=== PATIENT | female | born 1960 | race Caucasian/White ===

== ENCOUNTER 2025-03-02 10:47 | Outpatient (CLI) | payer OTHER, SELFPAY ==
--- OUTSIDE RECORDS SUMMARY | 2010-10-31 03:30 | XMS_ITS | Continuity of Care Document ---
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 Role Phone Unavailable Unavailable Unavailable Allergies, Adverse Reactions, Alerts Substance Reaction Status Criticality latex rash Active No Information NITROFURANTOIN MACROCRYSTALLINE rash Active No Information Medications Medication Instructions Dosage Effective Dates (start - stop) Status Comments tamoxifen 20 mg Tab take 1 tablet (20MG) by oral route every day 20 MG - Active Multiple Vitamin Tab take 1 tablet by ORAL route every day 1.00 tablet - Active MiralaxBisacodylMagCit Colon Prep Use as directed - No Longer Active Procedures Procedure Date Colonoscopy Flex; Dx (sep Pro) 11 Offic Cons New/estab Mod 40 Mi 07 Routine Serum Collection Advance Directives Directive Yes / No Effective Date File Name No Information Encounters Encounter Description Practice Location Reason(s) For Visit Diagnoses Date Provider Providers Copied on Encounter [facility], [address] [address], [place], [place], [id number], [place] tel:[phone] [facility] Colon Cancer Screening 1 No Information [facility], [address] [address], [place], [place], [id number], [place] tel:[phone] [facility] No Information 0 No Information Offic Cons New/estab Mod 40 [facility], [address] [address], [place], [place], [id number], tel:[phone] [facility] Hematochezia /melenaFlatu l/eructat/ga s Pain 200 7 No Information Family History Family Member Type Diagnosis Age At Onset No Information Payers Payer name Insurance type Covered libertarian ID Authoriza tion(s) [employer] [id number] Social History Type Description Quantity Date Captured Comments Sex Female Smoking Status No Information Chief Complaint And Reason For Visit No Information Reason For Referral Reason For Referral No Information History Of Present Illness Encounter Date Complaint History Of Prese nt Illness No Information Functional Status Date Functional Assessmen t No Information Instructions Date Instruction Additional Infor mation No Information Assessments Type Assessment Date No Information Patient Care Teams Name Effective Dates (start - stop) Status Members No Information
[2025-03-02 21:28] LABS: Basophils Percent Auto 0.5 % (0.0-3.0); Eosinophils Percent Auto 2.2 % (0.0-7.0); Hemoglobin* 14.1 gm/dL (12.0-16.0); Immature Granulocytes Pct Auto 0.2 %; Lymphocytes Percent Auto 30.2 % (20-44); Mean Corpuscular HGB Conc 32 gm/dL (32-36); Mean Corpuscular Hemoglobin 30 pg (26-34); Mean Corpuscular Volume 94 fL (80-100); Monocytes Percent Auto 8.5 % (0.0-11.0); Neutrophils Percent Auto 58.4 % (42.0-72.0); Platelet Count* 282 K/uL (140-440); RDW Coefficient of Variation % 13.3 % (11.5-15.5); Red Blood Count 4.66 m/uL (4.00-5.20)
[2025-03-02 21:29] LABS: Slide Review Reflex No
[2025-03-02 21:34] LABS: Albumin* 4.9 g/dL (3.3-5.0); Chloride* 102 mmol/L (96-114); Sodium* 137 mmol/L (135-149)
[2025-03-02 21:35] LABS: Potassium* 4.7 mmol/L (3.6-5.1)
[2025-03-02 21:37] LABS: Alanine Aminotransferase* 47 U/L (4-35); Alkaline Phosphatase* 79 U/L (40-150); Anion Gap 12 mEq/L (7-15); Aspartate Amino Transferase* 49 U/L (12-35); Bilirubin Total* 0.5 mg/dL (0.1-1.5); Blood Urea Nitrogen* 18 mg/dL (7-30); Carbon Dioxide* 23 mmol/L (20-32); Creatinine* 0.7 mg/dL (0.5-1.5); Estimated Glomerular Filt Rate 96 ml/min; Total Protein* 7.5 g/dL (6.0-8.3)
[2025-03-02 21:38] LABS: Calcium* 10.1 mg/dL (8.4-10.6); Glucose* 94 mg/dL (60-115)
[2025-03-02 22:08] LABS: Hepatitis B Surface Antigen* Negative (Negative)
[2025-03-02 23:14] LABS: Hepatitis B Surface Antibody* Negative (Negative)
--- OUTSIDE RECORDS SUMMARY | 2025-03-03 00:46 | XMS_ITS | Clinical Summary ---
Author Organization [facility] Address [address] [place] [address]. 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 Name Role Phone Page, Augie Hernandez MD Unavailable Unavailable Deonte Winn Unavailable [phone] Coming Valentina Sawyer MD Primary Care Provid er Coming Valentina Sawyer MD Unavailable [phone] Kourtney Metz MD Unavailable [phone] Allergies Active Allergy Reactions Criticality Noted Date Comments Latex Rash Low 10/23/2010 Latex Gloves Nitrofurantoin Rash Low 01/05/2000 rash Medications MULTIVITAMINS TABS OR 1 tablet daily 0 0 0 Active triamcinolone (KENALOG) 0.1 % external creamIndications:P soriasis Apply topically 2 times daily 80 g 1 2 Active calcipotriene (DOVONOX) 0.005 % external ointmentIndication s:Psoriasis APPLY TOPICALLY 2 TIMES DAILY NEEDED. 60 g 1 3 Active ketoconazole (NIZORAL) 2 % external shampooIndications :Seborrheic dermatitis APPLY TO THE AFFECTED AREA AND WASH OFF AFTER 5 MINUTES. 120 mL 3 Active clobetasol (TEMOVATE) 0.05 % external solutionIndication s:Psoriasis APPLY TO SCALP TWICE DAILY 50 mL 11 3 Active fluocinonide (LIDEX) 0.05 % external ointment APPLY TO AFFECTED AREAS ON THE EARS TWICE DAILY FOR UP TO TWO WEEKS, THEN TWICE WEEKLY THEREAFTER. 4 Active atorvastatin (LIPITOR) 10 MG tabletIndications: Mixed hyperlipidemia Take 1 tablet (10 mg) by mouth daily. 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 Problem list name updated by automated process. 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 Provider to review Hypoglycemia 07/29/2000 06/01/2019 Overview (06/13/2015): Problem list name updated by automated process. Provider to review Headache 07/29/2000 06/01/2019 Overview (06/13/2015): Problem list name updated by automated process. Provider to review Encounters Date Type Department Care Team Description 02/07/[address] [address] Coming Valentina Sawyer MD Medication Refill from Last 3 Months Immunizations Immunization Administration Dates Next Due COVID-19 MONOVALENT 12+ (Pfizer) 10/01/2020,08/15 HEPA 03/26/2009 Hepatitis A (VAQTA)(ADULT 19+) 11/19/2016,2008 Influenza (High Dose) Trival ent,PF (Fluzone) 06/22/2024 Influenza (IIV3) PF 06/03/2012, 0,06/05/2009,06/25,06/22/2006,07/15/2005,06/17/2004 Influenza Vaccine >6 months,quad, PF 08/2021,06/01/2019,07/06/2017,07/04 Influenza Vaccine Trivalent (FluBlok) 06/24/2018 Influenza,INJ,MDCK,PF,Quad >6mo(Flucelvax) 05/20/2023,05/30/2022,06/14/2020 Mantoux Tuberculin Skin Test 04/22/2009,03/26/20 09,05/25/2005 Pneumococcal 20 valent Conju gate (Prevnar 20) 08/29/2024 RSV Vaccine (Arexvy) 08/19/2023 TD,PF 7+ (Tenivac) 07/29/2000 07/29/2010 TDAP (Adacel,Boostrix) 03/06/2021 TDAP Vaccine (Adacel) 06/27/2010 Zoster recombinant adjuvante d (Shingrix) 09/25/2018,08/17/2018,04/29/2018 Family History Medical History Relation Comments Other Cancer Cousin Melanoma Cerebral palsy Daughter 1 Congenital Anomalies Daughter 1 2002 i n her sleep/ age No Known Problems Daughter 2 Prostate Cancer Maternal Grandfather Diabetes Maternal Grandmother Heart Disease Maternal Grandmother Hyperlipidemia Maternal Grandmother Hypertension Maternal Grandmother Cancer Mother melanoma Depression Mother Diabetes Mother Hyperlipidemia Mother Hypertension Mother Other Cancer Mother Melanoma Cancer Paternal Uncle lymphoma No Known Problems Son Breast Cancer No family hx of Colon Cancer No family hx of Relation Status Comments Cousin Daughter 1 Daughter 2 Alive Maternal Grandfather Maternal Grandmother Mother Paternal Uncle Son Alive Social History Tobacco Use Types Packs/Day Years Used Date Smoking Tobacco: Never Smokeless Tobacco: Never Tobacco Cessation:Counseling Given: Not Answered Comments:never smoked Alcohol Use Standard Drinks/Week Comments Yes 5 (1 standard drink = 0.6 oz pure alcohol) 1 glass of wine 3-4 times per week Social Connection and Isolat ion Panel [NHANES] Answer Date Recorded Frequency of Communication w ith Friends and Family Not on file 08/25/2024 How often do you get togethe r with friends or relatives? More than three times a week 08/25/2024 Attends Hoahaoism Services Not on file 08/25 Active Member of Clubs or Organizations Not on f ile 08/25/2024 Attends Club or Organization Meetings Not on aparna e 08/25/2024 Marital Status Not on file 08/25/2024 AUDIT-C Answer Date Recorded Q1: How often do you have a drink containing alcohol? 4 or more times a week 08/23/2023 Q2: How many drinks containi ng alcohol do you have on a typical day when you are drinking? 1 or 2 Q3: How often do you have si x or more drinks on one occasion? Never 08/23/2023 PHQ-2 Answer Date Recorded PHQ-2 Score 0 08/29/2024 [facility] - Occupational Stress Questionnaire Answer Date Recorded Do you feel stress - tense, restless, nervous, or anxious, or unable to sleep at night because your mind is troubled all the time - these days? Not at all 08/25/2024 Exercise Vital Sign Answer Date Recorde d On average, how many days pe r week do you engage in moderate to strenuous exercise (like a brisk walk)? 7 days 08/25/2024 On average, how many minutes do you engage in exercise at this level? 60 min 08/25/2024 Adolescent Education Answer Date Record ed Getting School Help Needed Not on file 06/12 Food Insecurity Answer Date Recorded Within the past 12 months, d id you worry that your food would run out before you got money to buy more? No 08/25/2024 Within the past 12 months, d id the food you bought just not last and you didn t have money to get more? No 08/25/2024 Housing Stability Answer Date Recorded Do you have housing? (Housin g is defined as stable permanent housing and does not include staying outside in a car, in a tent, in an abandoned building, in an overnight jail, or couch-surfing.) Yes 08/25/2024 Are you worried about losing your housing? No 08/25/2024 Financial Resource Strain Answer Date R ecorded Within the past 12 months, h ave you or your family members you live with been unable to get utilities (heat, electricity) when it was really needed? No 08/25/2024 Transportation Needs Answer Date Record ed Within the past 12 months, h as lack of transportation kept you from medical appointments, getting your medicines, non-medical meetings or appointments, work, or from getting things that you need? No 08/25/2024 Interpersonal Safety Answer Date Record ed Do you feel physically and e motionally safe where you currently live? Yes 08/29/2024 Within the past 12 months, h ave you been hit, slapped, kicked or otherwise physically hurt by someone? No 08/29/2024 Within the past 12 months, h ave you been humiliated or emotionally abused in other ways by your partner or ex-partner? 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 on file Not on file Last Filed Vital Signs Vital Sign Reading Time Taken Comments Blood Pressure 128/77 08/29/2024 9:45 AM NUT FORMER Pulse 66 08/29/2024 9:45 AM NUT FORMER Temperature 36.4 C (97.6 F) 08/29/2024 9:45 AM NUT FORMER Respiratory Rate 12 08/29/2024 9:45 AM NUT FORMER Oxygen Saturation 100% 08/29/2024 9:45 AM NUT FORMER Inhaled Oxygen Concentration - - Weight 52.2 kg (115 lb) 08/29/2024 9:45 AM NUT FORMER Height 161.3 cm (5' 3.5) 08/29/2024 9:45 AM NUT FORMER Body Mass Index 20.05 08/29/2024 9:45 AM NUT FORMER Plan of Treatment Upcoming Encounters Date Type Department Care Team (Late st Contact Info) Description 08/29/2025 9:30 AM NUT FORMER Office Visit [facility] [address] [place] [address] [place] [address] [place] [address] Health Maintenance Due Date Last Done Comments CT COLONOGRAPHY 1960 FLEX SIG 1960 COLONOSCOPY 10/31/2020 10/31/2010 FIT 08/23/2023 08/23/2022 PHQ-2 (once per calendar year) 2024 08/29/2024, 08/26/2023, 07/23/2022, Additional history exists COVID-19 VACCINE ( season) 2024 06/22/2024, 08/19/2023, 05/31/2022, Additional history exists LIPID 06/30/2025 06/30/2024, 07/14, 08/14/2022, Additional history exists ANNUAL REVIEW OF HM ORDERS 08/29/202508/29, 08/26/2023, 07/23/2022 FALL RISK ASSESSMENT 08/29/2025 08/29/2024 MEDICARE ANNUAL WELLNESS VISIT 08/29/2025 08/29/2024, 08/26/2023, 07/23/2022, Additional history exists MAMMO SCREENING 09/04/2025 09/04/2024, 08/14, 09/03/2022, Additional history exists DIABETES SCREENING 06/30/2027 06/30/2024, 1 , 07/31/2023, Additional history exists COLORECTAL CANCER SCREENING 09/10/2027 sDNA (Cologuard) 09/10/2027 09/10/2024, 09/10/2024 ADVANCE CARE PLANNING 08/29/2029 08/29/2024 , 03/06/2021, 05/10/2013, Additional history exists DTAP/TDAP/TD VACCINE (3 - Td or Tdap) 03/06/2031 03/06/2021, 06/27/2010, 07/29/2000 DEXA 11/09/2039 11/09/2024, 04/29/2009 HEPATITIS C SCREENING Completed 11/19/2016 ZOSTER VACCINE Completed 09/25/2018, 01/2018, 04/29/2018 PAP Discontinued 07/23/2022, 05/2017, 05/10/2013, Additional history exists RSV VACCINE Completed 08/19/2023 INFLUENZA VACCINE Completed 06/22/2024, , 05/30/2022, Additional history exists PNEUMOCOCCAL VACCINE 50+ YEARS Completed 08/29/2024 HIV SCREENING Discontinued HPV VACCINE Aged Out No longer eligi ble based on patient's age to complete this topic MENINGITIS VACCINE Aged Out No longer eligible based on patient's age to complete this topic Procedures Procedure Name Priority Date/Time Associated Diagnosis Comments DX AXIAL HIPS/SPINE Routine 11/09/2024 2 :48 PM NUT FORMER Post-menopausal COLOGUARD(TabletKiosk) Routine 09/10/2024 9:06 AM NUT FORMER Screen for colon cancer MA SCREENING BILATERAL W/ ELIU Routine 09/04/2024 8:39 AM NUT FORMER Visit for screening mammogram Personal history of breast cancer HEMOGLOBIN A1C Routine 06/30/2024 10:51 AM CDT Prediabetes LIPID REFLEX TO DIRECT LDL PANEL Routine 06/30/2024 10:51 AM CDT Mixed hyperlipidemia FECAL COLORECTAL CANCER SCREEN (FIT) (EXTERNAL RESULT) Routine 08/23/2022 10:00 AM NUT FORMER GYNECOLOGIC CYTOLOGY Routine 07/23/2022 5:26 PM NUT FORMER Cervical cancer screening HEPATITIS C ANTIBODY Routine 11/19/2016 12:03 PM NUT FORMER Hx gestational diabetes Screening for diabetes mellitus Abnormal gynecological examination Screening cholesterol level Encounter for administrative examinations, unspecified Screening for tuberculosis Family history of gout Personal history of malignant neoplasm of breast ZZHC COLONOSCOPY W BIOPSY Routine 10/31/2010 SCANNING RESULTS from Last 3 Months or Most Recently Relevant to Health Maintenance Results * DX AXIAL HIPS/SPINE (11/09/2024 2:48 PM NUT FORMER) Anatomical Region Laterality Modality Dexa Bone Mineral Den sity 11/09/2024 2:48 PM NUT FORMER Impressions 11/10/2024 10:45 AM NUT FORMER IMPRESSION: Low bone density (OSTEOPENIA). T score meets the WHO criteria for low bone density (osteopenia) at one or more measured sites. The risk of osteoporotic fracture increases approximately two-fold for each standard deviation decrease in T-score. Narrative 11/10/2024 10:45 AM NUT FORMER EXAM: DX AXIAL HIPS/SPINE LOCATION: [facility] DATE: 11/09/2024 INDICATION: Baseline BMD screening. DEMOGRAPHICS: Age- 64 years. Gender- Female. Menopausal status- Postmenopausal. COMPARISON: No prior studies available on the current scanner. TECHNIQUE: Dual-energy x-ray absorptiometry (DXA) performed with routine technique. FINDINGS: DXA RESULTS -Lumbar Spine: L1-L4: BMD: 0.989 g/cm2. T-score: -1.7. Z-score: -0.1. -RIGHT Hip Total: BMD: 0.822 g/cm2. T-score: -1.5. Z-score: -0.3. -RIGHT Hip Femoral neck: BMD: 0.789 g/cm2. T-score: -1.8. Z-score: -0.3. -LEFT Hip Total: BMD: 0.859 g/cm2. T-score: -1.2. Z-score: 0.0. -LEFT Hip Femoral neck: BMD: 0.821 g/cm2. T-score: -1.6. Z-score: -0.1. WHO T-SCORE CRITERIA -Normal: T score at or above -1 SD -Osteopenia: T score between -1 and -2.5 SD -Osteoporosis: T score at or below -2.5 SD The World Health Organization (WHO) criteria is applicable to perimenopausal females, postmenopausal females, and men aged 50 years or older. FRACTURE RISK -FRAX Results: The 10 year probability of major osteoporotic fracture is 8.8%, and of hip fracture is 1.3%, based on right femoral neck BMD. RECOMMENDATIONS The current National Osteoporosis Foundation Guide recommends that FDA-approved medical therapies be considered if the 10 year probability of major osteoporotic fracture risk is greater than or equal to 20%, or if the hip fracture risk is greater than or equal to 3%. Please note all treatment decisions require clinical judgement and consideration of individual patient factors, including patient preferences, comorbidities, previous drug use, risk factors not captured in the FRAX model (e.g. frailty, falls, vitamin D deficiency, increased bone turnover, interval significant decline in bone density) and possible under or over-estimation of fracture risk by FRAX. Procedure Note Megan Damico PA-C - 11/10/2024 EXAM: DX AXIAL HIPS/SPINE LOCATION: [facility] DATE: 11/09/2024 INDICATION: Baseline BMD screening. DEMOGRAPHICS: Age- 64 years. Gender- Female. Menopausal status-Postmenopausal. COMPARISON: No prior studies available on the current scanner. TECHNIQUE: Dual-energy x-ray absorptiometry (DXA) performed with routinetechnique. FINDINGS: DXA RESULTS -Lumbar Spine: L1-L4: BMD: 0.989 g/cm2. T-score: -1.7. Z-score: -0.1. -RIGHT Hip Total: BMD: 0.822 g/cm2. T-score: -1.5. Z-score: -0.3. -RIGHT Hip Femoral neck: BMD: 0.789 g/cm2. T-score: -1.8. Z-score: -0.3. -LEFT Hip Total: BMD: 0.859 g/cm2. T-score: -1.2. Z-score: 0.0. -LEFT Hip Femoral neck: BMD: 0.821 g/cm2. T-score: -1.6. Z-score: -0.1. WHO T-SCORE CRITERIA -Normal: T score at or above -1 SD -Osteopenia: T score between -1 and -2.5 SD -Osteoporosis: T score at or below -2.5 SD The World Health Organization (WHO) criteria is applicable toperimenopausal females, postmenopausal females, and men aged 50 years orolder. FRACTURE RISK -FRAX Results: The 10 year probability of major osteoporotic fracture is8.8%, and of hip fracture is 1.3%, based on right femoral neck BMD. RECOMMENDATIONS The current National Osteoporosis Foundation Guide recommends thatFDA-approved medical therapies be considered if the 10 year probability ofmajor osteoporotic fracture risk is greater than or equal to 20%, or ifthe hip fracture risk is greater than or equal to 3%. Please note all treatment decisions require clinicaljudgement and consideration of individual patient factors, includingpatient preferences, comorbidities, previous drug use, risk factors notcaptured in the FRAX model (e.g. frailty, falls, vitamin D deficiency, increased bone turnover, interval significantdecline in bone density) and possible under or over-estimation of fracturerisk by FRAX. IMPRESSION: Low bone density (OSTEOPENIA). T score meets the WHO criteriafor low bone density (osteopenia) at one or more measured sites. The riskof osteoporotic fracture increases approximately two-fold for eachstandard deviation decrease in T-score. December Shelly Sawyer MD IMG DEXA ORDERABLES Final Result * COLOGUARD(TabletKiosk) (09/10/2024 9:06 AM NUT FORMER) [facility] COLOGUARD-ABSTRACT Negative Negative 2024 4:10 PM NUT FORMER [facility] (CLIA #:[id number]) Comment: NEGATIVE TEST RESULT. A negative Cologuard result indicates a low likelihood that a colorectal cancer (CRC) or advanced adenoma (adenomatous polyps with more advanced pre-malignant features) is present. The chance that a person with a negative Cologuard test has a colorectal cancer is less than 1 in 1500 (negative predictive value >99.9%) or has an advanced adenoma is less than 5.3% (negative predictive value 94.7%). These data are based on a prospective cross-sectional study of 10,000 individuals at average risk for colorectal cancer who were screened with both Cologuard and colonoscopy. (Heladio Downey et al, N Engl J Med 2014;370(14):8949-2298) The normal value (reference range) for this assay is negative. COLOGUARD RE-SCREENING RECOMMENDATION: Periodic colorectal cancer screening is an important part of preventive healthcare for asymptomatic individuals at average risk for colorectal cancer. Following a negative Cologuard result, the [place] [employer] and U.S. Multi-Society Task Force screening guidelines recommend a Cologuard re-screening interval of 3 years. References: [place] [employer] Guideline for Colorectal Cancer Screening: https://www.cancer.org/cancer/jqvte-nztqgb-mwmgta/irynlkvhq-qdktggnja-dbsvwum/ac s-rec ommendations.html.; Hugo DK, Andrea MICHAEL, Erna MCMAHON, Colorectal Cancer Screening: Recommendations for Physicians and Patients from the U.S. Multi-Society Task Force on Colorectal Cancer Screening , Am J Gastroenterology 2017; 112:3659-2915. TEST DESCRIPTION: Composite algorithmic analysis of stool DNA-biomarkers with hemoglobin immunoassay. Quantitative values of individual biomarkers are not reportable and are not associated with individual biomarker result reference ranges. Cologuard is intended for colorectal cancer screening of adults of either sex, 45 years or older, who are at average-risk for colorectal cancer (CRC). Cologuard has been approved for use by the U.S. FDA. The performance of Cologuard was established in a cross sectional study of average-risk adults aged 50-84. Cologuard performance in patients ages 45 to 49 years was estimated by sub-group analysis of near-age groups. Colonoscopies performed for a positive result may find as the most clinically significant lesion: colorectal cancer [4.0%], advanced adenoma (including sessile serrated polyps greater than or equal to 1cm diameter) [20%] or non- advanced adenoma [31%]; or no colorectal neoplasia [45%]. These estimates are derived from a prospective cross-sectional screening study of 10,000 individuals at average risk for colorectal cancer who were screened with both Cologuard and colonoscopy. (Heladio Dominguez al, N Engl J Med 2014;370(14):8098-0310.) Cologuard may produce a false negative or false positive result (no colorectal cancer or precancerous polyp present at colonoscopy follow up). A negative Cologuard test result does not guarantee the absence of CRC or advanced adenoma (pre-cancer). The current Cologuard screening interval is every 3 years. ([place] [employer] and U.S. Multi-Society Task Force). Cologuard performance data in a 10,000 patient pivotal study using colonoscopy as the reference method can be accessed at the following location: www.Skillset/results. Additional description of the Cologuard test process, warnings and precautions can be found at www.cologuard.com. Stool specimen (specimen) 09/10/2024 9:06 AM NUT FORMER 09/12/2024 12:18 PM NUT FORMER us December Shelly Sawyer MD LABORATORY [place] l Result [facility] [address] [place] [address], [facility] [phone] [facility] (CLIA #:[id number]) [address] [place] [address] * MA Screen Bilateral w/Eliu (09/04/2024 8:39 AM NUT FORMER) Anatomical Region Laterality Modality Breast Bilateral Mammography Impressions 09/07/2024 12:26 PM NUT FORMER IMPRESSION: ACR BI-RADS Category 2: Benign BREAST CANCER SCREENING RECOMMENDATION: Routine yearly mammography beginning at age 40 or as discussed with your provider. The results and recommendations of this examination will be communicated to the patient. Anny Aguirre MD Narrative 09/07/2024 12:26 PM NUT FORMER BILATERAL FULL FIELD DIGITAL SCREENING MAMMOGRAM WITH TOMOSYNTHESIS Performed on: 09/04/24 Compared to: 09/03/2023, 08/28/2022, and 08/15/2021 Technique: This study was evaluated with the assistance of Computer-Aided Detection. Breast Tomosynthesis was used in interpretation. Findings: There are scattered areas of fibroglandular density. There are breast conservation changes in the left breast. There is no radiographic evidence of malignancy. us December Shelly Sawyer MD IMG MAMMOGRAPHY ORDE RABLES Final Result * Lipid panel reflex to direct LDL Fasting (06/30/2024 10:51 AM CDT) Cholesterol 198 <200 mg/dL 06/30/2024 11:21 AM CDT [facility] Triglycerides 102 <150 mg/dL 06/30/2024 11:21 AM CDT [facility] Direct Measure HDL 117 >=50 mg/dL 2023 11:21 AM CDT [facility] LDL Cholesterol Calculated 61 <100 mg/dL 06/30/2024 11:21 AM CDT [facility] Non HDL Cholesterol 81 <130 mg/dL 06/30/2024 11:21 AM CDT [facility] Patient Fasting > 8hrs? Yes 06/30/2024 11:21 AM CDT [facility] Blood STRUCTURE OF RIGHT UPPER LIMB / Unknown Venipuncture / Unknown 06/30/2024 10:51 AM CDT 06/30/2024 10:51 AM CDT Narrative [facility] - 06/30/2024 11:21 AM CDT Cholesterol Desirable: < 200 mg/dL Borderline High: 200 - 239 mg/dL High: >= 240 mg/dL Triglycerides Normal: < 150 mg/dL Borderline High: 150 - 199 mg/dL High: 200-499 mg/dL Very High: >= 500 mg/dL Direct Measure HDL Female: >= 50 mg/dL Male: >= 40 mg/dL LDL Cholesterol Desirable: < 100 mg/dL Above Desirable: 100 - 129 mg/dL Borderline High: 130 - 159 mg/dL High: 160 - 189 mg/dL Very High: >= 190 mg/dL Non HDL Cholesterol Desirable: < 130 mg/dL Above Desirable: 130 - 159 mg/dL Borderline High: 160 - 189 mg/dL High: 190 - 219 mg/dL Very High: >= 220 mg/dL December Shelly Sawyer MD LAB - BLOOD ORDERABL ES Final Result [facility] [place] [address] [facility] 1st [place] [address] * (ABNORMAL) Hemoglobin A1c (06/30/2024 10:51 AM CDT) Estimated Average Glucose 120(H) <117 mg/dL 06/30/2024 1:12 PM CDT [facility] Hemoglobin A1C 5.8(H) <5.7 % 06/30/2024 1:12 PM CDT [facility] Comment: Normal <5.7% Prediabetes 5.7-6.4% Diabetes 6.5% or higher Note: Adopted from ADA consensus guidelines. Blood STRUCTURE OF RIGHT UPPER LIMB / Unknown Venipuncture / Unknown 06/30/2024 10:51 AM CDT 06/30/2024 11:54 AM CDT December Shelly Sawyer MD LAB - BLOOD ORDERABL ES Final Result [facility] [place] [facility] [address] [facility] [place] [address] * Fecal Colorectal Cancer Screen (FIT) (External Result) (08/23/2022 10:00 AM NUT FORMER) Occult Blood Scn FIT Negative Negative [facility] Stool 08/23/2022 10:0 0 AM NUT FORMER Narrative [facility] - 08/23/2022 10:00 AM NUT FORMER FIT TEST [facility] Lab Result us Provider Outside LAB - HIM EXTERNAL RESULT Final Result [facility] [address] [place] [address] * Pap Screen with HPV - recommended age 30 - 65 years (07/23/2022 5:26 PM NUT FORMER) Interpretation Negative for Intraepithelial Lesion or Malignancy (NILM) 07/28/2022 10:49 AM NUT FORMER [facility] at 1049 NUT FORMER Comment Papanicolaou Test Limitations: Cervical cytology is a screening test with limited sensitivity, and regular screening is critical for cancer prevention. Pap tests are primarily effective for the diagnosis/prevent ion of squamous cell carcinoma, not adenocarcinoma or other cancers. 07/28/2022 10:49 AM [facility] Specimen Adequacy Satisfactory for evaluation, endocerv/transfor mation zone component absent, atrophy 07/28/2022 10:49 AM [facility] Clinical Information none 07/28/2022 10:49 AM [facility] Reflex Testing Yes regardless of result 07/28/2022 10:49 AM [facility] Previous Abnormal? No 07/28/2022 10:49 AM [facility] Performing Labs The technical component of this testing was completed at [facility] 07/28/2022 10:49 AM [facility] Brushing CERVIX UTERI STRUCTURE / Unknown Non-blood Collection / Unknown 07/23/2022 5:26 PM N[facility] 07/23/2022 5:47 PM N[facility] FORMER December Shelly Sawyer MD LAB - BEAKER AP Yanique rosario Result [facility] [address] [facility], [address] [address], [facility] [phone] * Hepatitis C antibody (11/19/2016 12:03 PM N[facility] FOR[facility]) Hepatitis C Antibody Nonreactive Assay performance characteristics have not been established for newborns, infants, and children NR [facility] Blood specimen (specimen) 11/19/2016 12:03 PM N[facility] 11/19/2016 12:18 PM N[facility] FORMER us Darling Sneed MD LAB - BLOOD ORDERABLES Final R esult Performing Organization Address City/[facility]/ZIP Co de Phone Number [facility] [address] [place] [address] * COLONOSCOPY W BIOPSY (10/31/2010) us Provider Abstract PROCEDURES Final Result from Last 3 Months or Most Recently Relevant to Health Maintenance Insurance [facility] [address] [id number] [place] [id number] [facility] none (Work) [address] [place] [id number] [place] [id number] [facility] Care Teams Industrial Maintenance Repairer Helper Relationship Specialty Start [place] [address] [place] [address] PCP - General Family Medicine 07/24/22 Augie Schultz MD MD Ophthalmology 08/13/17 Deonte Winn [facility] [address] [place] [address] Referring Physician Optometry 08/13/17 [place] [address] [place] [address] Assigned PCP 08/08/22 Kourtney Metz MD [address] [place] [address] Dermatology 08/16/23
--- OUTSIDE RECORDS SUMMARY | 2025-03-03 00:46 | XMS_ITS | Encounter Summary ---
Author Organization [facility] Address [address] [place] [address]. [place] [address] Care Team Providers Care Fine Arts Instructor Name Role Phone Darling Sneed MD Primary Care Provider Augie Schultz MD Unavailable Unavailable Deonte Winn Unavailable [phone] Darling Sneed MD Unavailable [phone] Clinic - [facility] Primary Care Provider Coming Valentina Sawyer MD Primary Care Provid er Coming Valentina Sawyer MD Unavailable [phone] Kourtney Metz MD Unavailable Encounter Details Date Type Department Care Team (Late st Contact Info) Description 04/21/2017 MyC Medical Advice [facility] [address] [place] [address] Efrain Crowell MD [address] [place] [address] [place] [address] Social History Tobacco Use Types Packs/Day Years Used Date Smoking Tobacco: Never Smokeless Tobacco: Never Alcohol Use Standard Drinks/Week Comments Yes 5 (1 standard drink = 0.6 oz pur e alcohol) 4/week Comments No Sex and Gender Information Value Date Recorded Sex Assigned at Female 07/05/2020 8:19 PM CDT Legal Sex Female 2:59 AM DRAGSAW OPERATOR Gender Identity Female 07/05/2020 8:19 PM CDT Sexual Orientation Straight 07/05/2020 8: 19 PM CDT 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 on file Not on file documented as of this encounter Plan of Treatment Upcoming Encounters Date Type Department Care Team (Late st Contact Info) Description 08/29/2025 9:30 AM DRAGSAW OPERATOR Office Visit [facility] [id number] [place] [phone] [place] [address] [place] [address] documented as of this encounter Visit Diagnoses Not on filedocumented in this encounter Care Teams Fine Arts Instructor Relationship Specialty Start Date End Date Darling Sneed MD [address], [address] [id number] PCP - General 12/02/10 01/10/22 [facility] [id number] [place] [address] PCP - General 07/23/22 07/23/22 Valentina Chen [place] [id number] [place] [address] PCP - General Family Medicine 07/24/22 Augie Schultz MD [address], [address] [address] Ophthalmology 08/13/17 Deonte Winn [facility] [address] [place] [address] Referring Physician Optometry 08/13/17 Darling Sneed MD [address], [address] [address] Assigned PCP 11/29/16 08/07/22 [place] [address] [place], [place] [id number] Assigned PCP 08/08/22 Kourtney Metz MD [address] [place], [place] [address] Dermatology 08/16/23 documented as of this encounter
--- OUTSIDE RECORDS SUMMARY | 2025-03-03 00:46 | XMS_ITS | Encounter Summary ---
Author Organization [facility] Address [address] [place] [address]. [place] [address] Care Team Providers Care Automatic Splicing Machine Operator Name Role Phone Page, Augie Hernandez MD Unavailable Unavailable Deonte Winn Unavailable [phone] Coming Valentina Sawyer MD Primary Care Provid er Coming Valentina Sawyer MD Unavailable [phone] Kourtney Metz MD Unavailable [phone] Reason for Visit * Reason Comments Medication Refill Encounter Details Date Type Department Care Team (Late st Contact Info) Description 02/07/[address] [phone] [place] [id number] [place] [address] [phone] Medication Refill Social History Tobacco Use Types Packs/Day Years Used Date Smoking Tobacco: Never Smokeless Tobacco: Never Comments:never smoked Alcohol Use Standard Drinks/Week Comments [...] than three times a week 08/25/2024 Attends [employer] Services Not on file 08/25 Active Member [...] Answer Date Recorded PHQ-2 Score 0 08/29/2024 [facility] Occupat [facility] - Occupational Stress [...] in an abandoned building, in an overnight assisted, or couch-surfing.) Yes 08/25/2024 Are you worried [...] PM CDT Legal Sex Female 2:59 AM ELECTRICAL INTEGRATOR Gender Identity Female 07/05/2020 8:19 PM CDT Sexual Orientation Straight 07/05/2020 8: 19 PM CDT 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 on file Not on file documented as of this encounter Plan of Treatment Upcoming Encounters Date Type Department Care Team (Late st Contact Info) Description 08/29/2025 9:30 AM ELECTRICAL INTEGRATOR Office Visit [facility] [id number] [place] [phone] Coming Valentina Sawyer [place] [id number] [place] [phone] documented as of this encounter Visit Diagnoses Diagnosis Psoriasis Other psoriasis documented in this encounter Additional Health Concerns Assessment Noted Time PHQ-9 Depression Total Score: 3 06/01/20 19 10:59 AM CDT documented as of this encounter Care Teams Automatic Splicing Machine Operator Relationship Specialty Start Date End Date Coming Valentina Sawyer [place] [id number] [place] [address] [phone] PCP - General Family Medicine 07/24/22 Augie Schultz MD Ophthalmology 08/13/17 Deonte Winn [facility] [address] Referring Physician Optometry 08/13/17 [place] [address] [place] [address] Assigned PCP 08/08/22 Kourtney Mezt MD [address] [place], [place] [address] Dermatology 08/16/23 documented as of this encounter
--- OUTSIDE RECORDS SUMMARY | 2025-03-03 00:46 | XMS_ITS | Encounter Summary ---
Author Organization [facility] Address [address] [place] [address]. [place] [address] Care Team Providers Care Nuclear Design Engineer Name Role Phone Darling Sneed MD Primary Care Provider Augie Schultz MD Unavailable Unavailable Deonte Winn Unavailable [phone] Darling Sneed MD Unavailable [phone] Clinic - [facility] Primary Care Provider Coming Valentina Sawyer MD Primary Care Provid er Coming Valentina Sawyer MD Unavailable [phone]- [phone] Kourtney Metz MD Unavailable Encounter Details Date Type Department Care Team (Late st Contact Info) Description 03/20/2017 MyC Medical Advice [facility] [address] [place] [address] Efrain Crowell MD [address] [place] [address] [place] [address] Social History Tobacco Use Types Packs/Day Years Used Date Smoking Tobacco: Never Smokeless Tobacco: Never Alcohol Use Standard Drinks/Week Comments Yes 5 (1 standard drink = 0.6 oz pur e alcohol) 4/week Comments No Sex and Gender Information Value Date Recorded Sex Assigned at Female 07/05/2020 8:19 PM CDT Legal Sex Female 2:59 AM CRYSTAL CUTTER Gender Identity Female 07/05/2020 8:19 PM CDT Sexual Orientation Straight 07/05/2020 8: 19 PM CDT 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 on file Not on file documented as of this encounter Plan of Treatment Upcoming Encounters Date Type Department Care Team (Late st Contact Info) Description 08/29/2025 9:30 AM CRYSTAL CUTTER Office Visit [facility] [phone] [place] [phone] [place] [address] [place] [address] documented as of this encounter Visit Diagnoses Not on filedocumented in this encounter Care Teams Nuclear Design Engineer Relationship Specialty Start Date End Date Darling Sneed MD [address], [address] [address] PCP - General 12/02/10 01/10/22 [facility] [id number] [place] [address] PCP - General 07/23/22 07/23/22 Valentina Chen MD [id number] [place] [address] PCP - General Family Medicine 07/24/22 Augie Schultz MD [address], [address] [address] Ophthalmology 08/13/17 Deonte Winn [facility] [address] [place] [address] Referring Physician Optometry 08/13/17 Darling Sneed MD [address], [address] [address] Assigned PCP 11/29/16 08/07/22 [place] [address] [place], [place] [phone] Assigned PCP 08/08/22 Kourtney Metz MD [address] [place], [place] [address] Dermatology 08/16/23 documented as of this encounter
--- OUTSIDE RECORDS SUMMARY | 2025-03-03 00:46 | XMS_ITS | Encounter Summary ---
Author Organization [facility] Address [address] [place] [address]. [place] [address] Care Team Providers Care Wheat Combine Driver Name Role Phone Page, Augie Hernandez MD Unavailable Unavailable Deonte Winn Unavailable [phone] Coming Valentina Sawyer MD Primary Care Provid er Coming Valentina Sawyer MD Unavailable [phone] Kourtney Metz MD Unavailable [phone] Encounter Details Date Type Department Care Team (Late st Contact Info) Description 06/29/2023 [facility] Medical Advice [address] [address] Valentina Chen MD [address] [place] [address] Social History Tobacco Use Types Packs/Day Years Used Date Smoking Tobacco: Never Smokeless Tobacco: Never Comments:never smoked Alcohol Use Standard Drinks/Week Comments Yes 5 (1 standard drink = 0.6 oz pure alcohol) 1 glass of wine 3-4 times per week Social Connection and Isolat ion Panel [NHANES] Answer Date Recorded In a typical week, how many times do you talk on the phone with family, friends, or neighbors? More than three times a week 07/22/2022 How often do you get togethe r with friends or relatives? More than three times a week 07/22/2022 How often do you attend [facility] or evangelical services? 1 to 4 times per year 07/22/2022 Do you belong to any clubs o r organizations such as caodaism groups, unions, fraternal or athletic groups, or school groups? Yes 07/22/2022 Attends Club or Organization Meetings Not on aparna e 07/22/2022 Are you , , di vorced, , never , or living with a partner? 07/22/2022 AUDIT-C Answer Date Recorded Q1: How often do you have a drink containing alcohol? 4 or more times a week 07/22/2022 Q2: How many drinks containi ng alcohol do you have on a typical day when you are drinking? 1 or 2 Q3: How often do you have si x or more drinks on one occasion? Never 07/22/2022 Overall Financial Resource Strain (CARDIA) Answe r Date Recorded How hard is it for you to pa y for the very basics like food, housing, medical care, and heating? Not hard at all 07/22/2022 PHQ-2 Answer Date Recorded PHQ-2 Score 0 07/23/2022 [facility] Occupat ional [facility] - Occupational Stress Questionnaire Answer Date Recorded Do you feel stress - tense, restless, nervous, or anxious, or unable to sleep at night because your mind is troubled all the time - these days? Not at all 07/22/2022 Exercise Vital Sign Answer Date Recorde d On average, how many days pe r week do you engage in moderate to strenuous exercise (like a brisk walk)? 7 days 07/22/2022 On average, how many minutes do you engage in exercise at this level? 50 min 07/22/2022 Hunger Vital Sign Answer Date Recorded Within the past 12 months, y ou worried that your food would run out before you got the money to buy more. Never true 07/22/20 22 Within the past 12 months, t he food you bought just didn't last and you didn't have money to get more. Never true 07/22/2022 PRAPARE - Transportation Answer Date Re corded In the past 12 months, has l ack of transportation kept you from medical appointments or from getting medications? No 05/2022 In the past 12 months, has l ack of transportation kept you from meetings, work, or from getting things needed for daily living? No 07/22/2022 Housing Stability Vital Sign Answer Felix e Recorded In the last 12 months, was t here a time when you were not able to pay the mortgage or rent on time? No 07/22/2022 In the last 12 months, how many places have you lived? 1 07/22/2022 In the last 12 months, was t here a time when you did not have a steady place to sleep or slept in a custodial (including now)? 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 Yes 06/17/2023 8:57 AM CDT documented as of this encounter Plan of Treatment Upcoming Encounters Date Type Department Care Team (Late st Contact Info) Description 08/29/2025 9:30 AM INFORMATICS MANAGER Office Visit [address] [address] Coming Valentina Sawyer [place] [id number] [place] [address] documented as of this encounter Visit Diagnoses Not on filedocumented in this encounter Additional Health Concerns Assessment Noted Time PHQ-9 Depression Total Score: 3 06/01/20 19 10:59 AM CDT documented as of this encounter Care Teams Wheat Combine Driver Relationship Specialty Start Date End Date Coming Valent[place] Sawyer [place] [id number] [place] [address] PCP - General Family Medicine 07/24/22 Augie Schultz MD Ophthalmology 08/13/17 Deonte Winn [facility] [address] [place] [address] Referring Physician Optometry 08/13/17 [place] [address] [place] [address] Assigned PCP 08/08/22 Kourtney Metz MD [address] [place], [place] [address] Dermatology 08/16/23 documented as of this encounter
--- OUTSIDE RECORDS SUMMARY | 2025-03-03 00:46 | XMS_ITS | Encounter Summary ---
Author Organization [facility] Address [address] [place] [address]. [place] [address] Care Team Providers Care Transportation Logistics Internship Name Role Phone Page, Augie Hernandez MD Unavailable Unavailable Deonte Winn Unavailable Coming Valentina Sawyer MD Primary Care Provid er Coming Valentina Sawyer MD Unavailable [phone] Kourtney Metz MD Unavailable Encounter Details Date Type Department Care Team (Late st Contact Info) Description 08/19/2022 [facility] [address] [address] Valentina Chen MD [address] [place] [address] Social History Tobacco Use Types Packs/Day [...] week 07/22/2022 How often do you attend [facility] or yarsani services? 1 to 4 times per year 07/22/2022 Do you belong to any clubs o r organizations such as sikh groups, unions, fraternal or athletic groups, or [...] Answer Date Recorded PHQ-2 Score 0 07/23/2022 [facility]at [facility] - Occupational Stress Questionnaire Answer Date Recorded [...] in a custodial (including now)? 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 No / Unsure 07/23/2022 4:21 PM GARBAGE COLLECTION SUPERVISOR documented as of this encounter Miscellaneous Notes * Telephone Encounter - Coming Valentina Sawyer MD - 08/20/2022 1:44 PM GARBAGE COLLECTION SUPERVISOR Responded to message AGE COLLECTION SUPERVISOR documented in this encounter Plan of Treatment Upcoming Encounters Date Type Department Care Team (Late st Contact Info) Description 08/29/2025 9:30 AM GARBAGE COLLECTION SUPERVISOR Office Visit [address] [phone] Valentina Chen MD [address] [place] [phone] documented as of this encounter Visit Diagnoses Not on filedocumented in this encounter Additional Health Concerns Assessment Noted Time PHQ-9 Depression Total Score: 3 06/01/20 19 10:59 AM CDT documented as of this encounter Care Teams Transportation Logistics Internship Relationship Specialty [place] [address] [place] [address] PCP - General Family Medicine 07/24/22 Augie Schultz MD Ophthalmology 08/13/17 Deonte Winn [facility] [address] [place] [address] Referring Physician Optometry 08/13/17 [place] [address] [place] [address] Assigned PCP 08/08/22 Kourtney Metz MD [address] [place], [place] [address] Dermatology 08/16/23 documented as of this encounter
--- OUTSIDE RECORDS SUMMARY | 2025-03-03 00:46 | XMS_ITS | Encounter Summary ---
Author Organization [facility] Address [address] [place] [address]. [place] [address] Care Team Providers Care Can Dryer Name Role Phone Page, Augie Hernandez MD Unavailable Unavailable Deonte Winn Unavailable [phone] Coming Valentina Sawyer MD Primary Care Provid er Coming Valentina Sawyer MD Unavailable [phone] Kourtney Metz MD Unavailable [phone] Encounter Details Date Type Department Care Team (Late st Contact Info) Description 09/06/2022 [facility] Medical Advice [address] [address] Valentina Chen MD [address] [place] [address] Social History Tobacco Use Types Packs/Day [...] week 07/22/2022 How often do you attend [facility] or gnosticism services? 1 to 4 times per year 07/22/2022 Do you belong to any clubs o r organizations such as shinto groups, unions, fraternal or athletic groups, or [...] Answer Date Recorded PHQ-2 Score 0 07/23/2022 [facility] of Occupat ional [facility] - Occupational Stress Questionnaire Answer Date [...] place to sleep or slept in a fci (including now)? 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 No / Unsure 09/03/2022 2:33 PM FLOOR LAYER APPRENTICE documented as of this encounter Plan of Treatment Upcoming Encounters Date Type Department Care Team (Late st Contact Info) Description 08/29/2025 9:30 AM FLOOR LAYER APPRENTICE Office Visit [address] [address] Coming Valentina Sawyer [place] [id number] [place] [address] [phone] documented as of this encounter Visit Diagnoses Not on filedocumented in this encounter Additional Health Concerns Assessment Noted Time PHQ-9 Depression Total Score: 3 06/01/20 19 10:59 AM CDT documented as of this encounter Care Teams Can Dryer Relationship Specialty Start Date End Date Coming Valentina Sawyer [place] [id number] [place] [address] [phone] PCP - General Family Medicine 07/24/22 Augie Schultz MD Ophthalmology 08/13/17 Deonte Winn [facility] [address] [place] [address] Referring Physician Optometry 08/13/17 [place] [address] [place], [place] [phone] Assigned PCP 08/08/22 Kourtney Metz MD [address] [place], [place] [address] Dermatology 08/16/23 documented as of this encounter
--- OUTSIDE RECORDS SUMMARY | 2025-03-03 00:47 | XMS_ITS | Encounter Summary ---
Author Organization [place] Address [address] [place] [address] Care Team Providers Care Continuing Education Specialist Name Role Phone Darling Sneed MD Primary Care Provider Augie Schultz MD Unavailable Unavailable Deonte Winn Unavailable [phone] Darling Sneed MD Unavailable [phone] [facility] Primary Care Provider Coming Valentina Sawyer MD Primary Care Provid er Coming Valentina Sawyer MD Unavailable + [phone] Kourtney [place] MD Unavailable Reason for Visit * Reason Onset Date Comments MyChart Communication 07/18/2021 Encounter Details Date Type Department Care Team (Latest Contact Info) Description 07/18/2021 MyC Medical Advice [facility] [address] [place] [phone] Darling Sneed MD [address] [place] [address] MyChart Communication Social History Tobacco Use Types Packs/Day Years Used Date Smoking Tobacco: Never Smokeless Tobacco: Never Alcohol Use Standard Drinks/Week Comments Yes 5 (1 standard drink = 0.6 oz pur e alcohol) 4/week AUDIT-C Answer Date Recorded Q1: How often do you have a drink containing alcohol? 4 or more times a week 06/01/2019 Q2: How many drinks containi ng alcohol do you have on a typical day when you are drinking? 1 or 2 9 Frequency of Binge Drinking Not on file 05/14 Overall Financial Resource Strain (CARDIA) Answe r Date Recorded How hard is it for you to pa y for the very basics like food, housing, medical care, and heating? Not hard at all 06/01/2019 PHQ-2 Answer Date Recorded PHQ-2 Score 2 06/01/2019 Hunger Vital Sign Answer Date Recorded Within the past 12 months, y ou worried that your food would run out before you got the money to buy more. Never true 06/01/20 19 Within the past 12 months, t he food you bought just didn't last and you didn't have money to get more. Never true 06/01/2019 PRAPARE - Transportation Answer Date Re corded In the past 12 months, has l ack of transportation kept you from medical appointments or from getting medications? No 05/14 In the past 12 months, has l ack of transportation kept you from meetings, work, or from getting things needed for daily living? 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 Please help direct to lab for this patient SHER BRUSH documented in this encounter Plan of Treatment Upcoming Encounters Date Type Department Care Team (Late st Contact Info) Description 08/29/2025 9:30 AM FINISHER BRUSH Office Visit [address] [address] [place] [address] [place] [address] documented as of this encounter Visit Diagnoses Diagnosis Mixed hyperlipidemia- Primary Encounter for therapeutic drug monitoring documented in this encounter Additional Health Concerns Assessment Noted Time PHQ-9 Depression Total Score: 3 06/01/20 19 10:59 AM CDT documented as of this encounter Care Teams Continuing Education Specialist Relationship Specialty Start Date End Date Darling Sneed MD [address] , [address] [address] PCP - General 12/02/10 01/10/22 [facility] [address] [place] [address] PCP - General 07/23/22 07/23/22 Valentina [place] [id number] [place] [address] PCP - General Family Medicine 07/24/22 Augie Schultz MD [address] , [address] [address] Ophthalmology 08/13/17 Deonte Winn [facility] [address] [place] [address] Referring Physician Optometry 08/13/17 Darling Sneed MD [address], [address] [address] Assigned PCP 11/29/16 08/07/22 [place] [address] [place] [address] Assigned PCP 08/08/22 Kourtney Metz MD [address] [place] [address] Dermatology 08/16/23 documented as of this encounter
--- OUTSIDE RECORDS SUMMARY | 2025-03-03 00:47 | XMS_ITS | Encounter Summary ---
Author Organization [place] Address [address] [place] [address] Care Team Providers Care Automotive Finance Manager Name Role Phone Darling Sneed MD Primary Care Provider [phone] Augie Schultz MD Unavailable Unavailable Deonte Winn Unavailable [phone] Darling Sneed MD Unavailable [phone] [facility] Primary Care Provider Coming Valentina Sawyer MD Primary Care Provid er Coming Valentina Sawyer MD Unavailable + [phone] Kourtney [place] MD Unavailable Reason for Visit * Reason Onset Date Comments MyChart Communication 08/20/2021 Encounter Details Date Type Department Care Team (Latest Contact Info) Description 08/20/2021 MyC Medical Advice [facility] [address] [place] [address] Darling Sneed MD [address] [place] [address] MyChart Communication Social History Tobacco Use [...] PM CDT Legal Sex Female 2:59 AM BUNDLE PERSON Gender Identity Female 07/05/2020 8:19 PM CDT Sexual Orientation Straight 07/05/2020 8: 19 PM CDT 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 No / Unsure 08/15/2021 7:16 AM BUNDLE PERSON documented as of this encounter Plan of Treatment Upcoming Encounters Date Type Department Care Team (Late st Contact Info) Description 08/29/2025 9:30 AM BUNDLE PERSON Office Visit [address] [phone] Aldo Sawyer Valentina MD Shelly [id number] [place] [address] documented as of this encounter Visit Diagnoses Not on filedocumented in this encounter Additional Health Concerns Assessment Noted Time PHQ-9 Depression Total Score: 3 06/01/20 19 10:59 AM CDT documented as of this encounter Care Teams Automotive Finance Manager Relationship Specialty Start Date End Date Darling Sneed MD [address] , [address] [address] PCP - General 12/02/10 01/10/22 [facility] [address] [place] [address] PCP - General 07/23/22 07/23/22 [place] [address] [place] [address] PCP - General Family Medicine 07/24/22 Augie Schultz MD [address] [address] Ophthalmology 08/13/17 Deonte Winn [facility] [address] [place] [address] Referring Physician Optometry 08/13/17 Darling Sneed MD [address] , [address] [address] Assigned PCP 11/29/16 08/07/22 [place] [address] [place] [address] Assigned PCP 08/08/22 Kourtney Metz MD [address] [place] [address] Dermatology 08/16/23 documented as of this encounter
--- OUTSIDE RECORDS SUMMARY | 2025-03-03 00:47 | XMS_ITS | Encounter Summary ---
Author Organization [place] Address [address] [place] [address] Care Team Providers Care Car Stereo Installer Name Role Phone Darling Sneed MD Primary Care Provider Augie Schultz MD Unavailable Unavailable Deonte Winn Unavailable [phone] Darling Sneed MD Unavailable [phone] [facility] Primary Care Provider Coming Valentina Sawyer MD Primary Care Provid er Coming Valentina Sawyer MD Unavailable + [phone] Kourtney Metz MD Unavailable Reason for Visit * Reason Comments Medication Refill Encounter Details Date Type Department Care Team ([facility] st Contact Info) Description 05/29/2021 Refill [facility] [address] [address] Darling Sneed MD [address] [place] [id number] Medication Refill Social History Tobacco Use Types [...] PM CDT Legal Sex Female 2:59 AM PUBLIC HEALTH REPRESENTATIVE Gender Identity Female 07/05/2020 8:19 PM CDT Sexual Orientation Straight 07/05/2020 8: 19 PM CDT 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 on file Not on file documented as of this encounter Miscellaneous Notes * Telephone Encounter - Pari Finn CMA - 05/29/2021 11:04 AM CDT Pending Prescriptions: Disp Refills calcipotriene (DOVONOX) 0.005 % external *60 g 0 Sig: APPLY TOPICALLY 2 TIMES DAILY NEEDED documented in this encounter Plan of Treatment Upcoming Encounters Date Type Department Care Team (Late st Contact Info) Description 08/29/2025 9:30 AM PUBLIC HEALTH REPRESENTATIVE Office Visit [address] [phone] [place] [address] [place] [address] documented as of this encounter Visit Diagnoses Diagnosis Psoriasis Other psoriasis documented in this encounter Additional Health Concerns Assessment Noted Time PHQ-9 Depression Total Score: 3 06/01/20 19 10:59 AM CDT documented as of this encounter Care Teams Car Stereo Installer Relationship Specialty Start Date End Date Darling Sneed MD [address], [address] [address] PCP - General 12/02/10 01/10/22 [facility] [address] [place] [address] PCP - General 07/23/22 07/23/22 [place] [address] [place] [address] PCP - General Family Medicine 07/24/22 Augie Schultz MD [address], [address] [address] Ophthalmology 08/13/17 Deonte Winn [facility] [address] [place] [address] Referring Physician Optometry 08/13/17 Darling Sneed MD [address], [address] [address] Assigned PCP 11/29/16 08/07/22 [place] [address] [place] [address] Assigned PCP 08/08/22 Kourtney [place]z MD [address] [place] [address] Dermatology 08/16/23 documented as of this encounter
--- OUTSIDE RECORDS SUMMARY | 2025-03-03 00:47 | XMS_ITS | Encounter Summary ---
Author Organization [place] Address [address] [place] [address] Care Team Providers Care Greenhouse Manager Name Role Phone Darling Sneed MD Primary Care Provider Augie Schultz MD Unavailable Unavailable Deonte Winn Unavailable [phone] Darling Sneed MD Unavailable [phone] [facility] Primary Care Provider Coming Valentina Sawyer MD Primary Care Provid er Coming Valentina Sawyer MD Unavailable + [phone] Kourtney [place] MD Unavailable Reason for Visit * Reason Onset Date Comments Refill Request 06/22/2018 Encounter Details Date Type Department Care Team ([facility] st Contact Info) Description 06/22/2018 MyC Refill [facility] [address] [address] Darling Sneed MD [address] [place] [address] Refill Request Social History Tobacco Use Types Packs/Day Years Used Date Smoking Tobacco: Never Smokeless Tobacco: Never Alcohol Use Standard Drinks/Week Comments Yes 5 (1 standard drink = 0.6 oz pur e alcohol) 4/week Comments No Sex and Gender Information Value Date Recorded Sex Assigned at Female 07/05/2020 8:19 PM CDT Legal Sex Female 2:59 AM INFORMATION CODER Gender Identity Female 07/05/2020 8:19 PM CDT Sexual Orientation Straight 07/05/2020 8: 19 PM CDT 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 Best wishes Abdirashid Shields documented in this encounter Plan of Treatment Upcoming Encounters Date Type Department Care Team (Late st Contact Info) Description 08/29/2025 9:30 AM INFORMATION CODER Office Visit [address] [phone] [place] [id number] [place] [address] documented as of this encounter Visit Diagnoses Diagnosis Seborrheic dermatitis Seborrheic dermatitis, unspecified documented in this encounter Care Teams Greenhouse Manager Relationship Specialty Start Date End Date Darling Sneed MD [address] , [facility] [address] [place] [address] PCP - General 12/02/10 01/10/22 [facility] [id number] [place] [address] PCP - General 07/23/22 07/23/22 [place] [address] [place] [address] PCP - General Family Medicine 07/24/22 Augie Schultz MD [address] , [address] [address] Ophthalmology 08/13/17 Deonte Winn [facility] [address] [place] [address] Referring Physician Optometry 08/13/17 Darling Sneed MD [address] [address] Assigned PCP 11/29/16 08/07/22 [place] [address] [place] [address] Assigned PCP 08/08/22 Kourtney [place]z MD [address] [place] [address] Dermatology 08/16/23 documented as of this encounter
[2025-03-04 05:55] LABS: Quantiferon TB Gold Plus Negative (Negative)
[2025-03-06 13:56] LABS: Hepatitis B Core Antibody, IgM Negative (Negative)
== END 2025-03-02 10:48 | disposition home or self-care (01) ==
LOC: NPINS 10:48
PROVIDERS: Visit Provider Dermatology
DX: Z79.899 Other long term (current) drug therapy (principal)
CPT/HCPCS: 80053; 85025; 86480; 86705; 86706; 86803; 87340